=== PATIENT | female | born 1980 | race Caucasian/White ===

== ENCOUNTER 2025-01-08 07:44 | Emergency (ER) | payer OTHER, SELFPAY ==
[2025-01-08] VITALS (9 sets, daily range): BP systolic 139–168; BP diastolic 10–110; PULSE 91–107; RESP 16–19; TEMP 36.7; O2SAT 97–100; BMI 29.2
--- NOTE | 2025-01-08 08:03 | ECG_ITS ---
[facility] Date: 2025-01-08 Pat Name: Ayanna Mensah Department: Room: Gender: Female Car P[employer]her: : 1980 Requested By: Star Douglas Order Number: [id number] Terrell MD: Emigdio Ramirez M.D. Measurements Intervals [place] Rate: 106 P: 55 W[place]: 135 QRS: 53 QRSD: 79 T: 9 QT: 350 QTc: 466 Interpretive Statements SINUS TACHYCARDIA NONSPECIFIC ST & T-WAVE ABNORMALITY No previous ECG available for comparison Electronically Signed On 01-09-2025 07:45:49 [employer] by Emgidio Ramirez M.D. [id number]
--- NOTE | 2025-01-08 08:13 | W.ED.NAVMDI ---
HPI - Nausea/Vomiting/Diarrhea General: Chief complaint: Nausea/Vomiting/Diarrhea Stated complaint: n/v/d sudden onset Time Seen by Provider: 01/08/25 07:46 History of Present Illness: 44-year-old female presents emergency room complaining of nausea vomiting and diarrhea that began overnight began several hours after she had eaten a meal with her family 1 other family members here with similar symptoms her has not had any symptoms she does have a lot of cramping she denies any medic easier hematemesis cough or emesis. She has previously had a cholecystectomy. She not had any dysuria urgency or frequency no fever. Associated nausea: Yes Associated symtoms: Reports nausea; Denies chest pain or dysuria Related Data Home Medications ?Medication ?Instructions ?Recorded ?Confirmed atorvastatin 20 mg tablet 20 mg PO DAILY 01/08/25 01/08/25 norethindrone 1 mg-ethinyl 1 tab PO DAILY 01/08/25 01/08/25 estradiol 20 mcg (21)-iron 75 mg (7) tablet (11/30 ()) pantoprazole 40 mg tablet,delayed 40 mg PO DAILY 01/08/25 01/08/25 release ropinirole 1 mg tablet 1 mg PO BEDTIME 01/08/25 01/08/25 sertraline 50 mg tablet 50 mg PO DAILY 01/08/25 01/08/25 Previous Rx's ?Medication ?Instructions ?Recorded dicyclomine 20 mg tablet 20 mg PO QID PRN abdominal pain 01/08/25 #60 tabs ondansetron 4 mg disintegrating 4 mg PO Q6H PRN nausea and 01/08/25 tablet vomiting #30 tabs sucralfate 1 gram tablet (Carafate) 1 g PO Q6H PRN stomach 01/08/25 upset/reflux #60 tabs Allergies Allergy/AdvReac Type Severity Reaction Status Date / Time No Known Allergies Allergy Verified 01/08/25 07:59 Review of Systems Const: Denies: fever(s) or chills Card: Denies: chest pain Resp: Denies: dyspnea GI: Reports: abdominal pain, nausea, vomiting and diarrhea : Denies: dysuria, urinary frequency or urinary urgency Musc: Denies: neck pain or back pain Skin/Breast: Denies: rash Physical Exam Const: COMMON NORMALS: no acute distress GENERAL APPEARANCE: cooperative and comfortable ORIENTATION/CONSCIOUSNESS: Yes awake, Yes oriented to person, Yes oriented to place and Yes oriented to time HENMT: COMMON NORMALS: normocephalic, atraumatic and hearing grossly normal bilaterally HEAD & SCALP: normocephalic and atraumatic Resp: COMMON NORMALS: normal respiratory effort, No retractions, No use of accessory muscles and clear to auscultation bilaterally AUSCULTATION: clear to auscultation bilaterally Cardio: COMMON NORMALS: regular rate, regular rhythm and No murmurs present (Cardio) RATE: regular rate RHYTHM: regular rhythm GI: COMMON NORMALS: Soft to palpation and No hepatosplenomegaly present AUSCULTATION: Yes normoactive bowel sounds PALPATION: Yes Soft to palpation, No Tenderness to palpation present (GI), No Guarding due to palpation present (GI) and Yes No hepatosplenomegaly present Extremity: COMMON NORMALS: normal to inspection, capillary refill normal, no clubbing, cyanosis or edema, no calf tenderness and no pedal edema Neuro: SENSORIUM/ORIENTATION: Yes oriented to person, Yes oriented to place and Yes oriented to time Skin: COMMON NORMALS: no rashes or lesions noted GENERAL SKIN EXAM: no rashes or lesions noted Course Vital Signs: Vital signs: Vital Signs Temperature 98.0 F 01/08/25 07:57 Pulse Rate 92 01/08/25 11:30 Respiratory Rate 16 01/08/25 10:52 Blood Pressure 159/87 01/08/25 11:30 Pulse Oximetry 98 01/08/25 11:30 Oxygen Delivery Me thod Room Air 01/08/25 07:57 MDM - Nausea/Vomiting/Diarrhea Medical Decision Making Improved with fluids medications and antiemetics. Will discharge patient home. Reviewed findings with her no acute findings on the CT. Discharge home with Bentyl Carafate pantoprazole and ondansetron. Clear liquid diet advance as tolerated Medical Records I reviewed the patient's medical records. Lab Data I reviewed the patient's lab results. 01/08/25 08:18 01/08/25 08:18 Radiology Impressions Abdomen/Pelvis CT 01/08/25 09:36 IMPRESSION: 1. No acute abdominal or pelvic findings. 2. Mild hepatomegaly. 3. Prior cholecystectomy. 4. No hydronephrosis. 5. Bulky uterus likely fibroid uterus. This can be followed up with ultrasound. 6. Chronic spondylolysis L5-S1. Laboratory Results WBC 12.82 10^3/uL (3.29-11.43) H 01/08/25 08:18 RBC 4.91 10^6/uL (3.85-5.65) 01/08/25 08:18 Hgb 14.70 g/dL (11.27-16.99) 01/08/25 08:18 Hct 44.0 % (36-47) 01/08/25 08:18 MCV 89.6 fl (85-98) 01/08/25 08:18 MCH 29.9 pg (27-33) 01/08/25 08:18 MCHC 33.4 g/dL (30-55) 01/08/25 08:18 RDW 15.0 % (12.1-15.1) 01/08/25 08:18 Plt Count 265 10^3/cmm (157-399) 01/08/25 08:18 MPV 10.4 fL (7.4-10.4) 01/08/25 08:18 Neut % (Auto) 93.0 % 01/08/25 08:18 Lymph % (Auto) 2.7 % 01/08/25 08:18 [place] % (Auto) 3.6 % 01/08/25 08:18 Eos % (Auto) 0.2 % 01/08/25 08:18 Baso % (Auto) 0.2 % 01/08/25 08:18 Neut # (Auto) 11.93 10^3/uL (1.8-7.7) H 01/08/25 08:18 Lymph # (Auto) 0.3 10^3/uL (0.8-4.8) L 01/08/25 08:18 [place] # (Auto) 0.5 10^3/uL (0.2-0.9) 01/08/25 08:18 Eos # (Auto) 0.0 10^3/uL (0.0-0.8) 01/08/25 08:18 Baso # (Auto) 0.0 10^3/uL (0.0-0.1) 01/08/25 08:18 Nucleated RBC % (auto) 0 % 01/08/25 08:18 Nucleated RBCs # 0.0 /100WBC 01/08/25 08:18 Sodium 137 mmol/L (136-145) 01/08/25 08:18 Potassium 3.8 mmol/L (3.5-5.1) 01/08/25 08:18 Chloride 103 mmol/L (98-107) 01/08/25 08:18 Carbon Dioxide 20 mmol/L (22-29) L 01/08/25 08:18 Anion Gap 17.8 (5-19) 01/08/25 08:18 BUN 14 mg/dL (6-20) 01/08/25 08:18 Creatinine 0.6 mg/dL (0.5-0.9) 01/08/25 08:18 GFR Calculation 108.1 mL/min (90-130) 01/08/25 08:18 Glucose 164 mg/dL (65-115) H 01/08/25 08:18 Calculated Osmolality 288 mOsm/kg (285-295) 01/08/25 08:18 Calcium 8.8 mg/dL (8.5-10.5) 01/08/25 08:18 Total Bilirubin 0.4 mg/dL (0.15-1.2) 01/08/25 08:18 AST 20 U/L (0-32) 01/08/25 08:18 ALT 29 U/L (0-33) 01/08/25 08:18 Alkaline Phosphatase 70 U/L (35-105) 01/08/25 08:18 Total Protein 7.1 g/dL (6.6-8.7) 01/08/25 08:18 Albumin 4.1 g/dL (3.5-5.2) 01/08/25 08:18 Globulin 3.0 g/dL (1.3-4.6) 01/08/25 08:18 Lipase 49 U/L (13-60) 01/08/25 08:18 Urine Color Yellow (Yellow) 01/08/25 09:10 Urine Appearance Cloudy (CLEAR) A 01/08/25 09:10 Urine pH 5.5 (5-7) 01/08/25 09:10 Ur Specific Era 1.033 (1.005-1.030) H 01/08/25 09:10 Urine Protein 2+ (Negative) A 01/08/25 09:10 Urine Glucose (UA) Negative (Normal) 01/08/25 09:10 Urine Ketones 4+ (Negative) 01/08/25 09:10 Urine Blood 2+ (Negative) A 01/08/25 09:10 Urine Nitrate Negative (Negative) 01/08/25 09:10 Urine Bilirubin Negative (Negative) 01/08/25 09:10 Urine Urobilinogen 1.0 mg/dL (Negative) 01/08/25 09:10 Ur Leukocyte Esterase Negative (Negative) 01/08/25 09:10 Urine RBC 0-4 /hpf (0-2) H 01/08/25 09:10 Urine WBC 5-10 /hpf (0-5) H 01/08/25 09:10 Ur Squamous Epith Cells 10-15 /hpf (0-5) H 01/08/25 09:10 Amorphous Sediment Not Reportable 01/08/25 09:10 Urine Bacteria 1+ /hpf (NONE) H 01/08/25 09:10 Hyaline Casts 5-10 /lpf H 01/08/25 09:10 Urine Yeast 1+ /hpf H 01/08/25 09:10 Influenza A (PCR) Negative (Negative) 01/08/25 09:02 Influenza Type B (PCR) Negative (Negative) 01/08/25 09:02 RSV (PCR) Negative (Negative) 01/08/25 09:02 SARS-CoV-2 (PCR) Negative (Negative) 01/08/25 09:02 All radiology interpretation(s) finalized by discharge Discharge Plan Discharge Patient Disposition: Home Clinical Impression: Food poisoning, Gastroenteritis Condition: Stable Prescriptions: New dicyclomine 20 mg tablet 20 mg PO QID PRN (Reason: abdominal pain) Qty: 60 0RF ondansetron 4 mg tablet,disintegrating 4 mg PO Q6H PRN (Reason: nausea and vomiting) Qty: 30 0RF sucralfate [Carafate] 1 gram tablet 1 g PO Q6H PRN (Reason: stomach upset/reflux) Qty: 60 0RF No Action atorvastatin 20 mg Tablet 20 mg PO DAILY norethindrone-e.estradiol-iron [Junel FE 11/30 ()] 1 mg-20 mcg (21)/75 mg (7) Tablet 1 tab PO DAILY pantoprazole 40 mg Tablet,Delayed Release (Dr/Ec) 40 mg PO DAILY sertraline 50 mg Tablet 50 mg PO DAILY ropinirole 1 mg Tablet 1 mg PO BEDTIME Discharge Orders: Discharge ED (Routine); Ordered 01/08/25 Ordered By: Star Riojas Referrals: Rossi Clarke MD [Staff Physician] - (Call to establish for a primary care physician for yourself and your family) Discharge Diet: Clear Liquid Discharge Activity: Increase activity as tolerated Patient Instructions: Opioid Safety, Pain Management Activity Restrictions/Additional Instructions: Thank you for choosing [facility] for your healthcare needs today. It is very important that you follow up as instructed or that you return to the Emergency Department should you have concerns or if your condition changes or worsens in any way. You were seen in the emergency room with abdominal cramping nausea and vomiting. Suspect this is precipitated by something you had eaten since you were seen at the same time with other family members who had similar symptoms. Your workup showed a mild elevation in your white count but otherwise was unremarkable the CT did not show anything emergent. Recommend clear liquid diet for the next 24 to 48 hours and advance as tolerated. You are also given Bentyl ondansetron and Carafate to use as needed. Print Language: Mauritian Coding Level of Care Code ED [employer] Specialist for Christopher Harris
[2025-01-08 08:22] LABS: Basophils % 0.2 %; Eosinophils % 0.2 %; Lymphocytes # 0.3 10^3/uL (0.8-4.8); Lymphocytes % 2.7 %; Mean Corpuscular HGB Conc 33.4 g/dL (30-55); Mean Corpuscular Hemoglobin 29.9 pg (27-33); Mean Corpuscular Volume 89.6 fl (85-98); Mean Platelet Volume 10.4 fL (7.4-10.4); Monocytes # 0.5 10^3/uL (0.2-0.9); Monocytes % 3.6 %; Neutrophils # 11.93 10^3/uL (1.8-7.7); Nucleated Red Blood Cells % 0 %; Platelet Count 265 10^3/cmm (157-399); Red Blood Count 4.91 10^6/uL (3.85-5.65); White Blood Count 12.82 10^3/uL (3.29-11.43)
[2025-01-08 08:42] LABS: Alanine Aminotransferase 29 U/L (0-33); Albumin Level 4.1 g/dL (3.5-5.2); Alkaline Phosphatase 70 U/L (35-105); Anion Gap 17.8 (5-19); Aspartate Amino Transferase 20 U/L (0-32); Blood Urea Nitrogen 14 mg/dL (6-20); Calcium 8.8 mg/dL (8.5-10.5); Carbon Dioxide 20 mmol/L (22-29); Chloride 103 mmol/L (98-107); Creatinine Clr Calc Pharmacy 114.7271; Glomerular Filtration Rate 108.1 mL/min (90-130); Glucose 164 mg/dL (65-115); Osmolality Calculated 288 mOsm/kg (285-295); Potassium 3.8 mmol/L (3.5-5.1); Sodium 137 mmol/L (136-145); Total Bilirubin 0.4 mg/dL (0.15-1.2); Total Protein 7.1 g/dL (6.6-8.7)
[2025-01-08 08:53] LABS: Lipase 49 U/L (13-60)
[2025-01-08] MEDS: ondansetron 2 mg/ML SDV 2 mL 4 MG IVP (09:03)
--- NOTE | 2025-01-08 09:10 | PC.PHAR ---
Pt gave names of current medications but had to phone [facility] for strength, directions and last fill dates.
[2025-01-08 09:15] LABS: Bilirubin Urine Negative (Negative); Blood Urine 2+ (Negative); Glucose Urine UA Negative (Normal); Ketones Urine 4+ (Negative); Leukocyte Esterase Urine Negative (Negative); Nitrate Urine Negative (Negative); Protein Urine 2+ (Negative); Urine Appearance Cloudy (CLEAR); Urine Color Yellow (Yellow); pH Urine 5.5 (5-7)
[2025-01-08 09:16] LABS: Add Urine Microscopic? YES; Bacteria Urine 1+ /hpf; RBC Urine 0-4 /hpf (0-2); Specific Gravity, Urine 1.033 (1.005-1.030); UA Manual Slide Review YES
[2025-01-08] MEDS: sodium chloride 0.9% 1,000 ML 999 ML IV (09:20)
--- NOTE | 2025-01-08 09:36 | CT_ITS ---
WS: [id number] CT ABDOMEN PELVIS TECHNIQUE: Noncontrast CT of the abdomen and pelvis with coronal and sagittal reformatted images. CLINICAL INFORMATION: Abdominal pain COMPARISON: None. DLP: 624.[address] scans at [facility] use at least one of these dose optimization techniques: automated exposure control; mA and/or kV adjustment per patient size (includes targeted exams where dose is matched to clinical indication); or iterative reconstruction. FINDINGS: Lung bases are well aerated. Cholecystectomy clips. Mild hepatic megaly. Normal size spleen. Small esophageal hiatal hernia. Adrenal glands are normal. No hydronephrosis in either kidney. Tiny fat-containing umbilical hernia. Normal noncontrast spleen. Normal sigmoid colon. No evidence of small or large bowel obstruction. No free fluid in the abdomen or pelvis. Suspected fibroid uterus. Chronic spondylolysis L5-S1. No significant anterolisthesis. No other acute findings. CT/CT abdomen pelvis wo con [id number] IMPRESSION: 1. No acute abdominal or pelvic findings. 2. Mild hepatomegaly. 3. Prior cholecystectomy. 4. No hydronephrosis. 5. Bulky uterus likely fibroid uterus. This can be followed up with ultrasound . 6. Chronic spondylolysis L5-S1.
[2025-01-08 09:43] LABS: Influenza A NEGATIVE (Negative); Influenza B NEGATIVE (Negative); Respiratory Syncytial Virus Ce NEGATIVE (Negative); SARS-CoV-2 PCR NEGATIVE (Negative)
[2025-01-08] MEDS: morphine 4 mg/mL SDV 1 mL IVP (10:03)
[2025-01-08] MEDS: morphine 4 mg/mL SDV 1 mL 2 MG IVP (10:52)
== END 2025-01-08 11:30 | disposition home or self-care (01) ==
PROVIDERS: Emergency Provider Family Medicine
DX: A05.9 Bacterial foodborne intoxication, unspecified (principal); K52.9 Noninfective gastroenteritis and colitis, unspecified; Z11.52 Encounter for screening for COVID-19
CPT/HCPCS: 36415; 74176; 80053; 81001; 83690; 85025; 87637; 93005; 96361; 96374; 96375; 96376; 99285; J2270; J2405; J7030